=== PATIENT | female | born 1990 | race African-American/Black ===

== ENCOUNTER 2020-03-07 07:06 | Emergency (ER) | payer SELFPAY ==
[2020-03-07 07:12] VITALS: BP 121/59
--- NOTE | 2020-03-08 11:01 | ER Document Report ---
Entered by GÓMEZ LARA SCRIBE 03/07/20 0731 Acting as scribe for:CURTIS BURTON MD ED GI/ - General Chief Complaint: Abdominal Cramping Stated Complaint: ABDOMINAL CRAMPING Time Seen by Provider: 03/07/20 07:30 Mode of Arrival: Ambulatory Information source: Patient Notes: This 29-year-old female patient presents to the emergency department today with complaints of lower abdominal cramping. Patient states that she has had irregular periods and intense lower abdominal cramping with her periods her whole life and she is just now being worked up for it per history. Patient states she went and saw an SLOT FLOOR ATTENDANT in [place] last week and she had blood work and a vaginal ultrasound performed in a workup to rule out PCOS/endometriosis. She goes back on Sunday this week to get her results. Patient reports that her menstrual cramping was pretty bad last night and she was sent home from work because of them so she is here today to get a work note to release her back to work. Patient denies being . - Related Data Allergies/Adverse Reactions: No Known Allergies Allergy (Verified 03/07/20 07:30) Past Medical History - General Information source: Patient - Social History Smoking Status: Never Smoker Cigarette use (# per day): No Frequency of alcohol use: None Drug Abuse: None Occupation: [employer] Lives with: Family Family History: Reviewed & Not Pertinent Renal/ Medical History: Reports: Other - being worked up for endometriosis/PCOS Surgical Hx: Negative Review of Systems - Review of Systems Constitutional: No symptoms reported EENT: No symptoms reported Cardiovascular: No symptoms reported Respiratory: No symptoms reported Gastrointestinal: See HPI, Abdominal pain Genitourinary: No symptoms reported Female Genitourinary: No symptoms reported, Last menstrual period - started yesterday, Irregular period. denies: Musculoskeletal: No symptoms reported Skin: No symptoms reported Hematologic/Lymphatic: No symptoms reported Neurological/Psychological: No symptoms reported -: Yes All other systems reviewed and negative Physical Exam - Vital signs Vitals: Temp Pulse Resp BP Pulse Ox 97.9 F 86 16 121/59 L 100 03/07/20 07:10 03/07/20 07:10 03/07/20 07:10 03/07/20 07:10 03/07/20 07:10 - Notes Notes: Physical Exam: General: Alert, appears well. Patient able to jump up and down without change in pain. HEENT: Normocephalic. Atraumatic. PERRL. Extraocular movements intact. Oropharynx clear. Neck: Supple. Non-tender. Respiratory: No respiratory distress. Clear and equal breath sounds bilaterally. Cardiovascular: Regular rate and rhythm. Abdominal: Minimal lower abdominal tenderness to palpation, no rebound/guarding. No distension. Normal Bowel Sounds. Back: No gross abnormalities. Extremities: Moves all four extremities. Upper extremities: Normal inspection. Normal ROM. Lower extremities: Normal inspection. No edema. Normal ROM. Neurological: Normal cognition. AAOx4. Normal speech. Psychological: Normal affect. Normal Mood. Skin: Warm. Dry. Normal color. Course - Re-evaluation Re-evalutation: 03/07/20 08:03 Patient resting comfortably. Patient showing no signs of acute surgical abdomen no rebound peritonitis noted. - Vital Signs Vital signs: Temp Pulse Resp BP Pulse Ox 97.9 F 86 16 121/59 L 100 03/07/20 07:10 03/07/20 07:10 03/07/20 07:10 03/07/20 07:10 03/07/20 07:10 03/07/20 08:03 Vital signs stable Discharge - Discharge Clinical Impression: Menorrhagia Condition: Stable Disposition: HOME, SELF-CARE Additional Instructions: Vaginal Bleeding You are having an episode of abnormal bleeding. Causes of abnormal vaginal bleeding can include miscarriage or tubal , tumors such as cancer or benign fibroids, medication effects, or hormone imbalance. Testing can eliminate unsuspected , tumors, or infection as a cause. "Dysfunctional uterine bleeding" is due to hormone imbalance, and is especially common at times when the normal cycle is disturbed -- whether by recent , use of control pills or hormones, or impending menopause. If the bleeding is innocent, most commonly a short course of hormones is given to restore the uterus to normal. Sometimes, the normal menstrual cycle corrects itself naturally. Sometimes, brief hormone therapy, or even a D&C is required. Your physician will advise you. Treatment for anemia may be required if bleeding is severe. You should rest and avoid intercourse until the bleeding is controlled. Call the doctor or return for re-examination if you feel faint, have increasing pain, or have a major increase in the amount of bleeding. You report that you have seen your OB flight control tower operator recently had lab work including blood work and ultrasound. And you have a follow-up appointment in a matter of 3 days with your flight control tower operator to discuss the results of the work-up you have had. Continue to follow your OB flight control tower operator instructions. We have written a work note for you today to be excused from work from tonight. Also recommend that you consider ibuprofen as needed for crampy abdominal pain with your menstrual cycle. Prescriptions: Ibuprofen [Ibu] 600 mg PO BID #21 tablet Forms: Return to Work I personally performed the services described in the documentation, reviewed and edited the documentation which was dictated to the scribe in my presence, and it accurately records my words and actions.
== END 2020-03-07 08:15 | disposition home or self-care (01) ==
LOC: ER 07:06
DX: N92.1 Excessive and frequent menstruation with irregular cycle (principal); N94.6 Dysmenorrhea, unspecified
CPT/HCPCS: 99282